=== PATIENT | male | born 1955 | race Caucasian/White ===

== ENCOUNTER 2016-12-05 12:51 | Emergency (ER) | payer BC ==
[2016-12-05 13:18] VITALS: BP 107/66
--- NOTE | 2016-12-05 13:52 | EDM.PDOC ---
[id number] LOWER BACK PAIN KIDNEY STONE? Time Seen by Provider: 12/05/16 13:52 Source of Information: Reports: Patient History Limitations: Reports: No Limitations - History of Present Illness INITIAL COMMENTS - FREE TEXT/NARRATIVE: 61-year-old male who is in today to be checked because he had some back pain and was concerned about a possible kidney stone. He also has a mild headache, the back pain is lower in the left. He took some ibuprofen last night which didn 't really seem to help but took some Tylenol earlier today that did seem to help. He actually looks very comfortable and almost didn't check in to be seen because he is feeling much better. No dysuria, increased urinary frequency, shortness of breath, cough, rash, abdominal pain, nausea or vomiting. Onset: Gradual (Over the past 12-24 hours) Location: Reports: Back Severity: Mild Associated Symptoms: Reports: Headaches. Denies: Confusion, Cough, Fever/Chills , Shortness of Breath, Weakness - Related Data Allergies Allergy/AdvReac Type Severity Reaction Status Date / Time No Known Allergies Allergy Verified 12/05/16 13:35 Home Meds: Home Meds NK [No Known Home Meds] 12/05/16 [History] Past Medical History Neurological History: Reports: Cerebral Aneurysms - Past Surgical History HEENT Surgical History: Reports: Tonsillectomy GI Surgical History: Reports: Cholecystectomy Social & Family History - Tobacco Use Smoking Status *Q: Never Smoker ED ROS GENERAL - Review of Systems Review Of Systems: See Below Constitutional: Denies: Fever, Chills, Malaise HEENT: Reports: Sinus Problem (Has some anterior sinus pressure and mild headache) Respiratory: Reports: No Symptoms. Denies: Shortness of Breath, Cough GI/Abdominal: Denies: Abdominal Pain : Reports: No Symptoms Musculoskeletal: Reports: Back Pain (Mostly on the left lower back) Skin: Reports: No Symptoms Neurological: Reports: Headache ED EXAM, GENERAL - Physical Exam Exam: See Below Exam Limited By: No Limitations General Appearance: Alert, No Apparent Distress Eye Exam: Bilateral Eye: Normal Inspection Head: Atraumatic Neck: Normal Inspection, Supple. No: Lymphadenopathy (R), Lymphadenopathy (L) Respiratory/Chest: No Respiratory Distress, Lungs Clear Cardiovascular: Regular Rate, Rhythm GI/Abdominal: Soft, Non-Tender Back Exam: Other (Some tenderness to palpation over the left paralumbar area but very minimal, no percussion tenderness) Neurological: Alert, Oriented, No Motor/Sensory Deficits Psychiatric: Normal Affect, Normal Mood Skin Exam: Warm, Dry Course - Vital Signs Last Recorded V/S: Last Vital Signs Temp 97.3 F 12/05/16 13:45 Pulse Resp 16 12/05/16 13:45 BP 107/66 12/05/16 13:45 Pulse Ox 97 12/05/16 13:45 - Orders/Labs/Meds Labs: Laboratory Tests 12/05/16 12/05/16 12/05/16 Range/Units 13:46 14:12 14:12 WBC 6.5 (4.5-11.0) K/uL RBC 4.71 (4.30-5.90) M/uL Hgb 14.7 (12.0-15.0) g/dL Hct 41.3 (40.0-54.0) % MCV 88 (80-98) fL MCH 31 (27-31) pg MCHC 36 (32-36) % Plt Count 255 (150-400) K/uL Neut % (Auto) 59 (36-66) % Lymph % (Auto) 27 (24-44) % [place] % (Auto) 12 H (2-6) % Eos % (Auto) 1 L (2-4) % Baso % (Auto) 1 (0-1) % Sodium 128 L (140-148) mmol/L Potassium 3.4 L (3.6-5.2) mmol/L Chloride 94 L (100-108) mmol/L Carbon Dioxide 26 (21-32) mmol/L Anion Gap 11.4 (5.0-14.0) mmol/L BUN 12 (7-18) mg/dL Creatinine 0.8 (0.8-1.3) mg/dL Est Cr Clr Drug Dosing 95.74 mL/min Estimated GFR (MDRD) > 60 (>60) Glucose 121 H (74-106) mg/dL Calcium 8.5 (8.5-10.1) mg/dL Total Bilirubin 2.4 H (0.2-1.0) mg/dL AST 25 (15-37) U/L ALT 30 (12-78) U/L Alkaline Phosphatase 97 (46-116) U/L Total Protein 6.6 (6.4-8.2) g/dL Albumin 3.3 L (3.4-5.0) g/dL Globulin 3.3 (2.3-3.5) g/dL Albumin/Globulin Ratio 1.0 L (1.2-2.2) Urine Color Yellow Urine Appearance Clear Urine pH 5.0 (4.5-8.0) Ur Specific [place] 1.020 (1.008-1.030) Urine Protein Negative (NEGATIVE) mg/dL Urine Glucose (UA) Normal (NEGATIVE) mg/dL Urine Ketones 15 H (NEGATIVE) mg/dL Urine Occult Blood Negative (NEGATIVE) Urine Nitrite Negative (NEGAITVE) Urine Bilirubin Negative (NEGATIVE) Urine Urobilinogen Normal (NORMAL) mg/dL Ur Leukocyte Esterase Negative (NEGATIVE) Urine RBC 0-5 (0-5) Urine WBC 0-5 (0-5) Ur Epithelial Cells Few Amorphous Sediment Not seen Urine Bacteria Few Urine Mucus Not seen - Re-Assessments/Exams Free Text/Narrative Re-Assessment/Exam: 12/05/16 14:47 A UA was obtained that showed a small amount of ketones otherwise negative. CBC was normal. 12/05/16 15:15 CBC was reassuring, extended chemistry profile showed a mildly low sodium and an elevated bilirubin of 2.4. 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 No treatment necessary at this time but he will return if worsening or concerns. Departure - Departure Time of Disposition: 15:34 Disposition: Home, Self-Care 01 Condition: Good Clinical Impression: Viral syndrome Low back pain Qualifiers: Chronicity: acute Back pain laterality: left Sciatica presence: without sciatica Qualified Code(s): M54.5 - Low back pain - Discharge Information Instructions: Back Pain, Adult, [id number] Referrals: PCP,None [Primary Care Provider] - Forms: ED Department Discharge Care Plan Goals: Fluids, Tylenol or ibuprofen for symptoms, and increase activity as tolerated. Return anytime if worsening or concerns.
== END 2016-12-05 15:35 | disposition home or self-care (01) ==
LOC: JP.ED 12:51
DX: M54.5 Low back pain (principal); B34.9 Viral infection, unspecified; Z90.49 Acquired absence of other specified parts of digestive tract; Z98.890 Other specified postprocedural states
CPT/HCPCS: 36415; 80053; 81001; 85025; 99284

== ENCOUNTER 2016-12-07 00:47 | Emergency (ER) | payer BC ==
[2016-12-07 01:20] VITALS: BP 148/72
--- NOTE | 2016-12-07 01:40 | EDM.PDOC ---
ED HPI GENERAL MEDICAL PROBLEM - General Chief Complaint: Abdominal Pain Stated Complaint: ABD PAIN Time Seen by Provider: 12/07/16 01:40 Source of Information: Reports: Patient, Old Records, RN Notes Reviewed History Limitations: Reports: No Limitations - History of Present Illness INITIAL COMMENTS - FREE TEXT/NARRATIVE: Here with his Chief complaint Abdominal pain nausea and diarrhea History of present illness 61-year-old male started developing bilateral flank pain 2 days ago, was seen in emergency that day, he was concerned he might have a kidney stone, urinalysis was negative. Almost immediately after leaving the emergency room he started developing pain around to the front of the abdomen which has persisted since then. He is unable to describe really well-appearing but it's indeed, if anything might feel better if he is up standing or moving around. Not aggravated by breathing. Associated with decreased appetite. He's had diarrhea up to 3 times per day, the worst was 2 days ago. Pain is in the middle of his abdomen quite deep. Associated nausea, couple episodes of small amounts of yellowish emesis. His only previous abdominal surgery has been cholecystectomy, he had one attack of biliary colic prior to surgery. He is from [place] with his . No recent antibiotics No bad food exposures No sick contacts known Discomfort is strong enough to keep him awake. Lower Abdominal Pain Score (Numeric/FACES): 10 - Related Data Allergies Allergy/AdvReac Type Severity Reaction Status Date / Time No Known Allergies Allergy Verified 12/05/16 13:35 Home Meds: Home Meds Acetaminophen/oxyCODONE [Percocet 325-5 MG] 1 - 2 each PO Q4H PRN #10 tab [Rx] Metoclopramide HCl [Reglan] 10 mg PO TID PRN #8 tablet 12/07/16 [Rx] Past Medical History Neurological History: Reports: Cerebral Aneurysms - Past Surgical History HEENT Surgical History: Reports: Tonsillectomy GI Surgical History: Reports: Cholecystectomy Social & Family History - Tobacco Use Smoking Status *Q: Never Smoker - Caffeine Use Caffeine Use: Reports: Tea - Recreational Drug Use Recreational Drug Use: No ED ROS GENERAL - Review of Systems Review Of Systems: See Below Constitutional: Reports: Malaise, Fatigue HEENT: Reports: No Symptoms Respiratory: Reports: No Symptoms Cardiovascular: Reports: No Symptoms GI/Abdominal: Reports: Abdominal Pain, Diarrhea, Decreased Appetite, Nausea, Vomiting. Denies: Distension, Hematemesis, Hematochezia : Reports: No Symptoms Musculoskeletal: Reports: No Symptoms Skin: Reports: No Symptoms Neurological: Reports: No Symptoms Hematologic/Lymphatic: Reports: No Symptoms Immunologic: Reports: No Symptoms ED EXAM, GI/ABD - Physical Exam Exam: See Below Exam Limited By: No Limitations General Appearance: Alert, Anxious, Moderate Distress, Other (Minimal elevation of blood pressure otherwise vital signs normal, somewhat restless) Eyes: Bilateral: Normal Appearance Ears: Normal External Exam, Hearing Grossly Normal Nose: Normal Inspection Throat/Mouth: Normal Inspection, Normal Voice, Other (Tongue is dry) Head: Atraumatic Neck: Normal Inspection, Supple. No: Lymphadenopathy (R), Lymphadenopathy (L) Respiratory/Chest: No Respiratory Distress, Lungs Clear, Normal Breath Sounds, No Accessory Muscle Use Cardiovascular: Normal Peripheral Pulses, Regular Rate, Rhythm GI/Abdominal Exam: Normal Bowel Sounds, Soft, No Distention, No Mass, Other ( Minimal tenderness periumbilically on palpation) (Male) Exam: No Hernia, Normal Inspection Back Exam: Normal Inspection. No: CVA Tenderness (R) Extremities: Normal Inspection Neurological: Alert, Oriented, No Motor/Sensory Deficits Psychiatric: Anxious Skin Exam: Warm, Dry Lymphatic: No Adenopathy Course - Vital Signs Last Recorded V/S: Last Vital Signs Temp 37.0 C 12/07/16 01:20 Pulse 74 12/07/16 01:20 Resp 16 12/07/16 01:20 BP 148/72 H 12/07/16 01:20 Pulse Ox 99 12/07/16 01:20 - Orders/Labs/Meds Orders: Active Orders 24 hr Category Date Time Status Peripheral IV Care [RC] . DIRECTED Care 12/07/16 01:55 Active Abdomen Pelvis w Cont [CT] Stat Exams 12/07/16 02:48 Taken Sodium Chloride 0.9% [Normal Saline] 1,000 ml Med 12/07/16 02:00 Active IV ASDIRECTED Sodium Chloride 0.9% [Saline Flush] Med 12/07/16 01:54 Active 10 ml FLUSH ASDIRECTED PRN Peripheral IV Insertion Adult [OM.PC] Routine Oth 12/07/16 01:53 Ordered Medication Orders Sodium Chloride (Normal Saline) 1,000 mls @ 250 mls/hr IV ASDIRECTED NEAL Last Admin: 12/07/16 02:05 Dose: 250 mls/hr Sodium Chloride (Saline Flush) 10 ml FLUSH ASDIRECTED PRN PRN Reason: Keep Vein Open Last Admin: 12/07/16 02:13 Dose: 10 ml Labs: Laboratory Tests 12/07/16 12/07/16 12/07/16 Range/Units 01:53 01:53 01:57 WBC 8.5 (4.5-11.0) K/uL RBC 5.14 (4.30-5.90) M/uL Hgb 16.2 H (12.0-15.0) g/dL Hct 45.1 (40.0-54.0) % MCV 88 (80-98) fL MCH 32 H (27-31) pg MCHC 36 (32-36) % Plt Count 267 (150-400) K/uL Sodium 136 L (140-148) mmol/L Potassium 3.6 (3.6-5.2) mmol/L Chloride 102 (100-108) mmol/L Carbon Dioxide 30 (21-32) mmol/L Anion Gap 7.6 (5.0-14.0) mmol/L BUN 5 L D (7-18) mg/dL Creatinine 0.9 (0.8-1.3) mg/dL Est Cr Clr Drug Dosing 84.82 mL/min Estimated GFR (MDRD) > 60 (>60) Glucose 112 H (74-106) mg/dL Calcium 8.8 (8.5-10.1) mg/dL Total Bilirubin 2.2 H (0.2-1.0) mg/dL AST 21 (15-37) U/L ALT 28 (12-78) U/L Alkaline Phosphatase 94 (46-116) U/L Total Protein 7.0 (6.4-8.2) g/dL Albumin 3.5 (3.4-5.0) g/dL Globulin 3.5 (2.3-3.5) g/dL Albumin/Globulin Ratio 1.0 L (1.2-2.2) Urine Color Yellow Urine Appearance Clear Urine pH 6.0 (4.5-8.0) Ur Specific [place] 1.015 (1.008-1.030) Urine Protein Negative (NEGATIVE) mg/dL Urine Glucose (UA) Normal (NEGATIVE) mg/dL Urine Ketones 15 H (NEGATIVE) mg/dL Urine Occult Blood Negative (NEGATIVE) Urine Nitrite Negative (NEGAITVE) Urine Bilirubin Negative (NEGATIVE) Urine Urobilinogen Normal (NORMAL) mg/dL Ur Leukocyte Esterase Negative (NEGATIVE) Urine RBC 0-5 (0-5) Urine WBC 0-5 (0-5) Ur Epithelial Cells Rare Amorphous Sediment Few Urine Bacteria Not seen Urine Mucus Few Meds: Medications Generic Name Dose Route Start Last Admin Trade Name Freq PRN Reason Stop Dose Admin Sodium Chloride 1,000 mls @ 250 mls/hr 12/07/16 02:00 12/07/16 02:05 Normal Saline IV 250 mls/hr ASDIRECTED NEAL Administration Sodium Chloride 10 ml 12/07/16 01:54 12/07/16 02:13 Saline Flush FLUSH 10 ml ASDIRECTED PRN Administration Keep Vein Open Discontinued Medications Generic Name Dose Route Start Last Admin Trade Name Freq PRN Reason Stop Dose Admin Fentanyl 50 mcg 12/07/16 01:55 12/07/16 02:09 Sublimaze IVPUSH 12/07/16 01:56 50 mcg ONETIME ONE Administration Fentanyl 50 mcg 12/07/16 02:48 12/07/16 02:53 Sublimaze IVPUSH 12/07/16 02:49 50 mcg ONETIME ONE Administration Fentanyl 50 mcg 12/07/16 03:39 12/07/16 03:44 Sublimaze IVPUSH 12/07/16 03:40 50 mcg ONETIME ONE Administration Sodium Chloride 72 mls @ 3.2 mls/sec 12/07/16 02:55 12/07/16 03:08 Normal Saline IV 12/07/16 02:56 3.2 mls/sec ASDIRECTED STA Administration Iopamidol 100 ml 12/07/16 02:55 12/07/16 03:07 Isovue-300 (61%) IV 12/07/16 02:56 100 ml . DIRECTED STA Administration Metoclopramide HCl 10 mg 12/07/16 04:19 Reglan PO 12/07/16 04:20 ONETIME ONE Ondansetron HCl 4 mg 12/07/16 01:54 12/07/16 02:08 Zofran IVPUSH 12/07/16 01:55 4 mg ONETIME ONE Administration Oxycodone/Acetaminophen 1 tab 12/07/16 04:19 Percocet 325-5 Mg PO 12/07/16 04:20 ONETIME STA - Re-Assessments/Exams Free Text/Narrative Re-Assessment/Exam: 12/07/16 02:01 61-year-old male with periumbilical/epigastric abdominal pain over 48 hours associated with nausea, Solu-Medrol amounts of emesis and diarrhea. Differential diagnosis includes choledocholithiasis, colitis, gastroenteritis among many others. Intravenous saline, ondansetron 4 mg IV, fentanyl 50 g IV Labs ordered 12/07/16 02:59 Improve with the above treatment but then pain relapsed CBC normal, urea creatinine normal, hepatic enzymes normal Repeat fentanyl 50 g IV Again abdominal exam shows minimal tenderness. CT scan abdomen pelvis with IV contrast 12/07/16 03:49 Fentanyl 50 g IV, third dose 12/07/16 04:25 CT scan negative for intra-abdominal inflammation although he does have a large amount of stool in the ascending colon There is a 1.4 cm right middle lobe lesion that will need further imaging. Departure - Departure Time of Disposition: 04:23 Disposition: Home, Self-Care 01 Condition: Good Clinical Impression: Gastroenteritis, Pulmonary nodule less than 6 cm determined by computed tomography of lung Abdominal pain Qualifiers: Abdominal location: generalized Qualified Code(s): R10.84 - Generalized abdominal pain - Discharge Information Prescriptions: Acetaminophen/oxyCODONE [Percocet 325-5 MG] 1 - 2 each PO Q4H PRN #10 tab PRN Reason: Moderate to severe pain Metoclopramide HCl [Reglan] 10 mg PO TID PRN #8 tablet PRN Reason: Nausea or vomiting or bloating Instructions: Abdominal Pain, Adult, [id number] Forms: ED Department Discharge Additional Instructions: The CT scan does not show any significant problem in the abdomen so the most likely cause of your abdominal pain is an intestinal infection such as viral gastroenteritis which causes abdominal pain nausea and diarrhea. Allow your intestines to rest and take only clear fluids such as juices and broth and Gatorade until your pain improves Get rechecked if not significantly improved within 3-4 days You have a 1.4 cm lesion or nodule in the right middle lobe, right lung. Please see your doctor within the next month to have this rechecked, further imaging will be recommended to determine the nature of this lesion. You are being prescribed 2 medications, one is called oxycodone for pain and the other called Reglan/metoclopramide is for nausea and help with your bowels emptying as you to have increased burden of stool on the CT scan. - My Orders Last 24 Hours: My Active Orders 12/07/16 01:53 Peripheral IV Insertion Adult [OM.PC] Routine 12/07/16 01:54 Sodium Chloride 0.9% [Saline Flush] 10 ml FLUSH ASDIRECTED PRN 12/07/16 01:55 Peripheral IV Care [RC] . DIRECTED 12/07/16 02:00 Sodium Chloride 0.9% [Normal Saline] 1,000 ml IV ASDIRECTED 12/07/16 02:48 Abdomen Pelvis w Cont [CT] Stat - Assessment/Plan Last 24 Hours: My Active Orders 12/07/16 01:53 Peripheral IV Insertion Adult [OM.PC] Routine 12/07/16 01:54 Sodium Chloride 0.9% [Saline Flush] 10 ml FLUSH ASDIRECTED PRN 12/07/16 01:55 Peripheral IV Care [RC] . DIRECTED 12/07/16 02:00 Sodium Chloride 0.9% [Normal Saline] 1,000 ml IV ASDIRECTED 12/07/16 02:48 Abdomen Pelvis w Cont [CT] Stat
[2016-12-07] MEDS ORDERED: Ondansetron 4 MG/2 ML SDV IVPUSH ONE (01:54)
[2016-12-07] MEDS ORDERED: Sodium Chloride 0.9% 10 ML Syringe FLUSH PRN (01:54)
[2016-12-07] MEDS ORDERED: fentaNYL 100 MCG/2 ML SDV IVPUSH ONE ×3 (01:55→03:39)
[2016-12-07] MEDS ORDERED: Sodium Chloride 0.9% 1,000 ML IV SCH (02:00)
[2016-12-07] MEDS ORDERED: Iopamidol 612 MG/ML 100 ML Bottle IV STA (02:55)
[2016-12-07] MEDS ORDERED: Acetaminophen/oxyCODONE 325-5 MG Tab PO STA (04:19)
[2016-12-07] MEDS ORDERED: Metoclopramide 10 MG Tab PO ONE (04:19)
== END 2016-12-07 04:41 | disposition home or self-care (01) ==
LOC: JP.ED 00:47
DX: K52.9 Noninfective gastroenteritis and colitis, unspecified (principal); R91.1 Solitary pulmonary nodule; Z90.49 Acquired absence of other specified parts of digestive tract; Z98.890 Other specified postprocedural states
CPT/HCPCS: 36415; 74177; 80053; 81001; 85027; 96361; 96374; 96375; 96376; 99284; A9270; J2405; J3010; J7030; J7040; J7050; Q9967